=== PATIENT | female | born 2000 | race African-American/Black ===

== ENCOUNTER 2024-01-21 04:15 | Day surgery (SDC) | payer OTHER ==
[2024-01-19 11:18] VITALS: BMI 32.5
[2024-01-21] MEDS ORDERED: oxyCODONE HCL 5 MG TABLET PO PRN (08:07)
[2024-01-21] MEDS ORDERED: ONDANSETRON 4 MG/2 ML VIAL IVPUSH PRN (08:07)
[2024-01-21] MEDS ORDERED: BUPIVACAINE HCL/PF 0.25% (2.5MG/ML) 10 ML VIAL ONE (10:59)
[2024-01-21] MEDS ORDERED: ONDANSETRON 4 MG/2 ML VIAL ONE ×2 (11:00→11:22)
[2024-01-21] MEDS ORDERED: MIDAZOLAM HCL 2 MG/2 ML SINGLE DOSE VIAL ONE (11:00)
[2024-01-21] MEDS ORDERED: SEVOFLURANE 250 ML BTL ONE (11:00)
[2024-01-21] MEDS ORDERED: PROPOFOL 20 ML ONE ×2 (11:00→11:01)
[2024-01-21] MEDS ORDERED: ROCURONIUM BROMIDE 50 MG/5 ML SYRINGE ONE (11:00)
[2024-01-21] MEDS ORDERED: LIDOCAINE HCL/PF 2% SDV 5ML VIAL ONE (11:00)
[2024-01-21] MEDS ORDERED: DEXAMETHASONE SOD PHOSPHATE 4 MG/1 ML VIAL ONE ×2 (11:00→11:22)
[2024-01-21] MEDS ORDERED: METHYLENE BLUE 50 MG/10 ML AMPUL ONE (11:02)
[2024-01-21] MEDS ORDERED: BUPIVACAINE HCL/PF 0.5% (5MG/ML) 10 ML VIAL ONE (11:02)
[2024-01-21] MEDS ORDERED: ceFAZolin SODIUM 1 GM VIAL ONE ×2 (11:22→14:30)
[2024-01-21] MEDS ORDERED: SUGAMMADEX SODIUM 200 MG/2 ML VIAL ONE (11:22)
[2024-01-21] MEDS ORDERED: KETOROLAC TROMETHAMINE 30 MG/1 ML VIAL ONE (11:22)
[2024-01-21] MEDS ORDERED: ACETAMINOPHEN INJECTION 100 ML IVPB ONE (11:25)
[2024-01-21] MEDS ORDERED: SUCCINYLCHOLINE CHLORIDE 200 MG/10 ML SYRINGE ONE (11:39)
[2024-01-21] MEDS: ceFAZolin SODIUM 1 GM VIAL IVPB ONE (11:45)
[2024-01-21] MEDS ORDERED: PROPOFOL 60 ML ONE (11:54)
[2024-01-21] MEDS ORDERED: HYDROmorphone HCl 2 MG/ML VIAL ONE (12:03)
[2024-01-21] MEDS: LACTATED RINGERS SOLUTION 1,000 ML IV SCH (14:08)
[2024-01-21 16:26] VITALS: RESP 20; TEMP 97.3
[2024-01-21 16:28] VITALS: BP 125/75; PULSE 51
== END 2024-01-21 15:07 | disposition home or self-care (01) ==
LOC: JASU-SURG 04:15
PROVIDERS: ATTEND Specialist
PROC: 0UJD4ZZ Inspection of Uterus and Cervix, Percutaneous Endoscopic Approach (ICD-10-PCS; 2024-01-21)
PROC: 3E0P3KZ Introduction of Other Diagnostic Substance into Female Reproductive, Percutaneous Approach (ICD-10-PCS; principal; 2024-01-21 10:30)
DX: N94.6 Dysmenorrhea, unspecified (principal); N80.00 Endometriosis of the uterus, unspecified; D25.9 Leiomyoma of uterus, unspecified
CPT/HCPCS: 81025; 86850; 86900; 86901; 94760; J0131; Q9968